=== PATIENT | female | born 1955 | race Caucasian/White ===

== ENCOUNTER → 2022-10-11 | Outpatient (CLI) | payer OTHER ==
[~2022-10-11] MED LIST: ALBU90OI6 INH; OXYC5 PO
[2022-10-12 16:10] LABS: HPV 16 Negative (Negative); HPV 18 Negative (Negative); HPV OTHER HR TYPES Negative (Negative)
== END | disposition home or self-care (01) ==
LOC: LAB SHORT 09:05 → LAB 09:05
PROVIDERS: Internal Medicine
DX: Z01.419 Encounter for gynecological examination (general) (routine) without abnormal findings (principal)
CPT/HCPCS: 87624; G0145

== ENCOUNTER 2024-12-18 22:37 | Inpatient (IN) | payer OTHER ==
[~2024-12-18] VITALS: Ht 165.1 cm; Wt 78.9 kg
[2024-12-18] MEDS ORDERED: LOSARTAN POTASS25 M2 PO (22:56)
[2024-12-18] MEDS ORDERED: ESTRADIOL42.5 GM (22:57)
[2024-12-18] MEDS ORDERED: ATOR40TA PO (22:57)
[2024-12-18] MEDS ORDERED: Ondansetron HCl 2 MG / ML 2ML Vial IV PRN (23:00)
[2024-12-18 23:06] LABS: BASOPHILS ABSOLUTE AUTO 0.04 K/mm3 (0.00-0.23); BASOPHILS PERCENT AUTO 0 % (0-2); EOSINOPHILS ABSOLUTE AUTO 0.00 K/mm3 (0.00-0.68); EOSINOPHILS PERCENT AUTO 0 % (0-6); Hematocrit 41.0 % (33.0-51.0); Hemoglobin 13.8 g/dL (11.5-16.0); IMMATURE GRAN ABSOLUTE AUTO 0.04 K/mm3 (0.00-0.10); IMMATURE GRAN PERCENT AUTO 0 % (0-1); LYMPHOCYTES ABSOLUTE AUTO 0.63 K/mm3 (0.84-5.20); LYMPHOCYTES PERCENT AUTO 4 % (21-46); MONOCYTES ABSOLUTE AUTO 0.49 K/mm3 (0.16-1.47); MONOCYTES PERCENT AUTO 3 % (4-13); Mean Corpuscular HGB Conc 33.7 g/dL (31.5-36.5); Mean Corpuscular Volume 88 fL (80-100); NEUTROPHILS ABSOLUTE AUTO 14.84 K/mm3 (1.96-9.15); NEUTROPHILS PERCENT AUTO 93 % (41-73); NRBC ABSOLUTE 0.00 K/mm3 (0.00-0.02); NRBC Auto 0.0 /100 WBC (0.0-0.2); Platelet Count 291 K/mm3 (150-400); RDW Coefficient Variation 13.4 % (11.7-14.2); RDW Standard Deviation 43.1 fL (35.1-46.3)
[2024-12-18 23:20] LABS: Alanine Aminotransfer (ALT/SGP 31.0 U/L (12-78); Albumin, Blood 3.7 g/dL (3.4-5.0); Albumin/Globulin Ratio 1.0 (0.8-1.8); Anion Gap 6.0 mmol/L (3-11); Aspartate Aminotrans (AST/SGOT 27.0 U/L (12-37); Bilirubin, Total 0.6 mg/dL (0.1-1.0); Blood Urea Nitrogen 17.0 mg/dL (8-24); CO2, Blood 29.0 mmol/L (21-32); Calcium, Blood 8.8 mg/dL (8.5-10.1); Chloride, Blood 106.0 mmol/L (98-108); Creatinine, Blood 0.76 mg/dL (0.40-1.00); Globulin, Blood 3.6 g/dL (2.2-4.0); Glucose, Blood 155.0 mg/dL (70-99); Potassium, Blood 3.7 mmol/L (3.5-5.5); Sodium, Blood 137.0 mmol/L (136-145); Total Protein, Blood 7.3 g/dL (6.4-8.2)
[2024-12-19] MEDS ORDERED: Metoclopramide HCl 5MG / ML 2ML Vial IV ONE (00:55)
[2024-12-19] MEDS ORDERED: NS 1,000 ML IV ONE (02:52)
[2024-12-19] MEDS ORDERED: NS 1,000 ML IV SCH (03:00)
[2024-12-19] MEDS ORDERED: Ondansetron HCl 2 MG / ML 2ML Vial IV PRN (03:10)
[2024-12-19 04:00] VITALS: BP 142/76
[2024-12-19 04:11] LABS: BASOPHILS ABSOLUTE AUTO 0.03 K/mm3 (0.00-0.23); BASOPHILS PERCENT AUTO 0 % (0-2); EOSINOPHILS ABSOLUTE AUTO 0.01 K/mm3 (0.00-0.68); EOSINOPHILS PERCENT AUTO 0 % (0-6); Hematocrit 38.9 % (33.0-51.0); Hemoglobin 13.2 g/dL (11.5-16.0); IMMATURE GRAN ABSOLUTE AUTO 0.04 K/mm3 (0.00-0.10); IMMATURE GRAN PERCENT AUTO 0 % (0-1); LYMPHOCYTES ABSOLUTE AUTO 0.95 K/mm3 (0.84-5.20); LYMPHOCYTES PERCENT AUTO 6 % (21-46); MONOCYTES ABSOLUTE AUTO 0.77 K/mm3 (0.16-1.47); MONOCYTES PERCENT AUTO 5 % (4-13); Mean Corpuscular HGB Conc 33.9 g/dL (31.5-36.5); Mean Corpuscular Volume 88 fL (80-100); NEUTROPHILS ABSOLUTE AUTO 14.16 K/mm3 (1.96-9.15); NEUTROPHILS PERCENT AUTO 89 % (41-73); NRBC ABSOLUTE 0.00 K/mm3 (0.00-0.02); NRBC Auto 0.0 /100 WBC (0.0-0.2); Platelet Count 276 K/mm3 (150-400); RDW Coefficient Variation 13.5 % (11.7-14.2); RDW Standard Deviation 44.1 fL (35.1-46.3)
[2024-12-19 04:26] LABS: Anti-Xa UFH, PHA Monitoring <0.10 IU/mL; Prothrombin Time Results 11.2 Sec (9.7-11.5)
[2024-12-19] MEDS ORDERED: Heparin Sodium,Porcine/0.5 NS 500 ML IV SCH (04:45)
[2024-12-19 04:55] LABS: Magnesium, Blood 1.8 mg/dL (1.6-2.4)
[2024-12-19 04:56] LABS: Alanine Aminotransfer (ALT/SGP 29.0 U/L (12-78); Albumin, Blood 3.5 g/dL (3.4-5.0); Albumin/Globulin Ratio 1.1 (0.8-1.8); Anion Gap 7.0 mmol/L (3-11); Aspartate Aminotrans (AST/SGOT 23.0 U/L (12-37); Bilirubin, Total 0.6 mg/dL (0.1-1.0); Blood Urea Nitrogen 15.0 mg/dL (8-24); CO2, Blood 29.0 mmol/L (21-32); Calcium, Blood 8.5 mg/dL (8.5-10.1); Chloride, Blood 106.0 mmol/L (98-108); Creatinine, Blood 0.76 mg/dL (0.40-1.00); Globulin, Blood 3.3 g/dL (2.2-4.0); Glucose, Blood 130.0 mg/dL (70-99); Potassium, Blood 3.8 mmol/L (3.5-5.5); Sodium, Blood 138.0 mmol/L (136-145); Total Protein, Blood 6.8 g/dL (6.4-8.2)
[2024-12-19 07:13] LABS: CHOL/HDL RATIO 2.2; Cholesterol 158 mg/dL (50-200); HDL Cholesterol 73 mg/dL (>39); LDL/HDL RATIO 1.0; Low Density Lipoprotein Chol 72 mg/dL (0-110); Thyroid Stimulating Hormone 2.450 uIU/mL (0.360-4.800); Triglycerides 67 mg/dL (30-160); Very Low Density Lipoprot Chol 13 mg/dL (6-32)
[2024-12-19 08:07] VITALS: BP 112/77
[2024-12-19] MEDS ORDERED: Enoxaparin 40 MG/0.4 ML SYR SC SCH (09:00)
--- NOTE | 2024-12-19 09:31 | NUR ---
AM NOTE: PATIENT ALERT AND ORIENTED X4. TALKING WITH FAMILY ON PERSONAL PHONE THIS MORNING AND IN GOOD SPIRITS. DENIES PAIN AT THIS TIME. MOVING IND IN BED. UP TO BATHROOM WITH SBA TO HELP MANAGE LINES. PERRLA. DENIES N/T. TELE SHOWING SB/SR WITH HR 40-60'S. DENIES CHEST PAIN AT THIS TIME. STATES SHE DID HAVE A SMALL EPISODE LASTING 15-20MIN OF CHEST 6/10 CHEST PAIN JUST PRIOR TO BEDSIDE SHIFT REPORT. PAIN DID NOT RADIATE. ECHO COMPLETED THIS AM. HEPARIN GTT AND FLUIDS INFUSING PER EMAR. NPO AT THIS TIME. CARDIOLOGY CONSULT PENDING. ON ROOM AIR SATING 95% AND ABOVE. LUNG SOUNDS CLEAR AND DIM IN BASES. EVEN AND UNLABORED RESPIRATIONS. DENIES SOB/COUGH. BOWEL TONES PRESENT. NPO AT THIS TIME. PATIENT DENIES NAUSEA AT THIS TIME. UP TO BATHROOM WITH SBA. ORDERS FOR STOOL SAMPLE. SKIN C/D/I. CALL LIGHT IN REACH. DENIES NEEDS AT THIS TIME.
[2024-12-19 11:10] VITALS: BP 132/73
[2024-12-19] MEDS ORDERED: Dose Adjust by Pharmacy XX STA ×2 (12:12→17:52)
--- NOTE | 2024-12-19 12:19 | NUR ---
DR. RAMIREZ AND DR. MORRIS TO BEDSIDE. THIS RN PRESENT. DR. MORRSI DISCUSSED POSSIBLE ANGIO TOMORROW. NPO AT MIDNIGHT IN CASE PATIENT PROCEEDES WITH PROCEDURE. HEPARIN CONTINUES AT THIS TIME. CLEAR LIQUID DIET IN PLACE, ADVANCE TOLERATED.
[2024-12-19] MEDS ORDERED: CO Q-10100 MG PO (13:56)
[2024-12-19 15:30] VITALS: BP 126/63
--- NOTE | 2024-12-19 18:37 | NUR ---
SHIFT SUMMARY: PATIENT ALERT AND ORIENTED. PLAN FOR POSSIBLE ANGIOGRAM TOMORROW, NPO AT MIDNIGHT. TOLERATING CLEAR LIQUID DIET AT THIS TIME. ADVANCE TOLERATED. STILL NEEDING STOOL SAMPLE. TELE CONTINUES TO SHOW SB/SR WITH HR 40-60'S. ON ROOM AIR. ECHO COMPLETED THIS AM. HEPARIN GTT INFUSING PER EMAR. COMPLAINS OF HEADACHE THIS EVENING. CALL PLACED TO DR. NAZARIO FOR TYLENOL ORDERS. CALL LIGHT IN REACH. DENIES NEEDS AT THIS TIME.
[2024-12-19 19:06] VITALS: BP 156/84
[2024-12-19] MEDS ORDERED: Metoclopramide HCl 5MG / ML 2ML Vial IV PRN (19:15)
[2024-12-20] VITALS (18 sets, daily range): BP systolic 125–176; BP diastolic 69–97
[2024-12-20 05:10] LABS: BASOPHILS ABSOLUTE AUTO 0.05 K/mm3 (0.00-0.23); BASOPHILS PERCENT AUTO 0 % (0-2); EOSINOPHILS ABSOLUTE AUTO 0.00 K/mm3 (0.00-0.68); EOSINOPHILS PERCENT AUTO 0 % (0-6); Hematocrit 38.7 % (33.0-51.0); Hemoglobin 13.1 g/dL (11.5-16.0); IMMATURE GRAN ABSOLUTE AUTO 0.11 K/mm3 (0.00-0.10); IMMATURE GRAN PERCENT AUTO 1 % (0-1); LYMPHOCYTES ABSOLUTE AUTO 0.97 K/mm3 (0.84-5.20); LYMPHOCYTES PERCENT AUTO 7 % (21-46); MONOCYTES ABSOLUTE AUTO 0.72 K/mm3 (0.16-1.47); MONOCYTES PERCENT AUTO 5 % (4-13); Mean Corpuscular HGB Conc 33.9 g/dL (31.5-36.5); Mean Corpuscular Volume 89 fL (80-100); NEUTROPHILS ABSOLUTE AUTO 12.39 K/mm3 (1.96-9.15); NEUTROPHILS PERCENT AUTO 87 % (41-73); NRBC ABSOLUTE 0.00 K/mm3 (0.00-0.02); NRBC Auto 0.0 /100 WBC (0.0-0.2); Platelet Count 230 K/mm3 (150-400); RDW Coefficient Variation 13.5 % (11.7-14.2); RDW Standard Deviation 44.4 fL (35.1-46.3)
[2024-12-20 05:32] LABS: Anion Gap 10.0 mmol/L (3-11); Blood Urea Nitrogen 8.0 mg/dL (8-24); CO2, Blood 25.0 mmol/L (21-32); Calcium, Blood 8.0 mg/dL (8.5-10.1); Chloride, Blood 105.0 mmol/L (98-108); Creatinine, Blood 0.65 mg/dL (0.40-1.00); Glucose, Blood 136.0 mg/dL (70-99); Potassium, Blood 3.4 mmol/L (3.5-5.5); Sodium, Blood 137.0 mmol/L (136-145)
--- NOTE | 2024-12-20 06:09 | NUR ---
SHIFT SUMMARY PT ALERT AND ORIENTED X4, FOLLOWS COMMANDS, ABLE TO MAKE NEEDS KNOWN, AFEBRILE, SB/SR 50-70s, RESP EVEN AND UNLABORED ON RA, SPO2 >90%, PIV TO RIGHT AC AND LEFT HAND PATENT WITH HEPARIN INFUSING PER EMAR, PT RESTLESS AND NAUSEATED/VOMITING MOST OF SHIFT, CP BEGINNING OF SHIFT FOR APROX 2 MINUTES AND RESOLVED WITHOUT INTERVENTION, DR MORRIS CALLED AT 1910 FOR UPDATE ON PT AND NOTIFIED OF PT CP AND N/V, PT MEDICATED WITH REGLAN AND ZOFRAN IVP PER PRN EMAR, PT HAS DENIED CP SINCE BEGINNING OF SHIFT,NPO AT MIDNIGHT FOR ANGIO SCHEDULED THIS AM, SIDE RAILS UP X2 CALL LIGHT IN REACH
--- NOTE | 2024-12-20 06:33 | NUR ---
UPDATE PT HAD A NOTED 10 BEAT RUN OF VTACH, RESOLVED WITHOUT INTERVENTION, PT RESTING WITH EYES CLOSED IN BED, NO DISTRESS NOTED, DR SAMANIEGO AT BEDSIDE AT THIS TIME AND MADE AWARE OF VTACH AND UPDATED ON PT HS SHIFT WITH N/V ALL SHIFT
[2024-12-20] MEDS ORDERED: Prochlorperazine Edisylate 10 mg Vial IV PRN (06:40)
[2024-12-20] MEDS ORDERED: FentaNYL Citrate 50 MCG/ML 2 ML Injection IV ONE (08:10)
[2024-12-20] MEDS ORDERED: LORazepam 2 MG/ML 1ML Injection IV ONE (08:10)
[2024-12-20] MEDS ORDERED: Heparin Sodium 1000 Units/ML 10ML MDV ONE (08:36)
[2024-12-20] MEDS ORDERED: Verapamil HCL 2.5 MG/ML 2ML Injection ONE (08:36)
[2024-12-20] MEDS ORDERED: Nitroglycerin 2 MG/20 ML BTL ONE (08:36)
[2024-12-20] MEDS ORDERED: NS 250 ML IV ONE (08:36)
[2024-12-20] MEDS ORDERED: NS 1,000 ML IV ONE ×2 (08:36→08:54)
[2024-12-20] MEDS ORDERED: Midazolam HCl 1MG / ML 2ML Vial ONE (08:53)
[2024-12-20] MEDS ORDERED: FentaNYL Citrate 50 MCG/ML 2 ML Injection ONE (08:53)
--- NOTE | 2024-12-20 09:10 | NUR ---
AM NOTE: PATIENT ALERT AND ORIENTED. FEELING ILL THIS MORNING. COMPLAINS OF 8/10 ABDOMINAL PAIN THAT IS SHARP AND CONSTANT. NAUSEATED THROUGHOUT THE NIGHT WITH NO SLEEP. TELE SHOWING SR WITH HR 40-60'S. SBP 150'S. ON ROOM AIR SATING ABOVE 90%. LUNG SOUNDS CLEAR AND DIM IN BASES. EVEN AND UNLABORED RESPIRATIONS. DENIES SOB/COUGH. NPO PENDING ANGIOGRAM. BOWEL TONES PRESENT. MEDICATED THIS AM FOR NAUSEA. DR. MORRIS TO BEDSIDE. ORDER FOR FENTANYL 25MCG IV X1 NOW. WELL 1MG PO ATIVAN ADMINISTERED. PATIENT SYMPTOMS IMPROVED FOR MEDICATION AND WAS ABLE TO REST THIS AM PRIOR TO ANGIOGRAM. PATIENT LEFT FOR ANGIOGRAM AT 0908. HEPARIN ON STANDBY AND PHARMACY UPDATED. POTASSIUM REPLACED THIS AM.
--- NOTE | 2024-12-20 10:40 | NUR ---
PATIENT RETURNS FROM NURSE HEAD AT 1016. VITAL SIGNS STABLE AND POST PROCEDURE VITAL SIGNS IN PROGRESS. RIGHT RADIAL SITE SOFT, NONTENDER AND NO HEMATOMA. TR BAND AND ARM BOARD IN PLACE. PATIENT VERY SLEEPY, BUT WAKES TO NAME AND TOUCH. ABLE TO ANSWER QUESTIONS CLEARLY. RIGHT RADIAL PRECAUTIONS REVIEWED WITH PATIENT. WEARING 1L NASAL CANNULA AT THIS TIME SATING ABOVE 95%. LUNG SOUNDS CLEAR. OCCASIONAL SNORE WHEN SLEEPING. TELE SHOWING SINUS ERROL WITH HR 50'S. SBP 150-160'S. BED ALARM IN PLACE DUE TO SAFETY AT THIS TIME WITH PATIENT BEING SO SLEEPY. CALL LIGHT IN REACH.
--- NOTE | 2024-12-20 11:20 | NUR ---
DR. MORRIS TO BEDSIDE POST ANGIO. PATIENT WAKES TO DISCUSS RESULTS WITH DR. MORRIS BUT FALLS BACK ASLEEP QUICKLY. ORDERS TO START LOSARTAN AT THIS TIME.
[2024-12-20] MEDS ORDERED: HydrALAZINE HCl 20 MG / ML 1ML Vial IV PRN (13:55)
--- NOTE | 2024-12-20 14:10 | NUR ---
PATIENT BLOOD PRESSURE REMAINS ELEVATED. DR. RAMIREZ UPDATED BY THIS RN. SEE NEW ORDER FOR IV HYDRALAZINE.
--- NOTE | 2024-12-20 16:15 | NUR ---
PATIENT HAVING MORE FREQUENT PVC'S AND A FEW RUNS OF VENT BIGEMCALEBY DR. RAMIREZ UPDATED. VITAL SIGNS STABLE. BLOOD PRESSURE IMPROVED. CURRENTLY 143/87. HR MORE CONSISTENTLY IN THE 70-80'S. TEMPORAL TEMP 98.7. UP TO BATHROOM TO VOID X2 SINCE ANGIOGRAM WITH SBA. FEW SIPS OF WATER SINCE ANGIOGRAM BUT DUE TO NAUSEA PATIENT DENIES OTHER CLEAR LIQUIDS AT THIS TIME. PRN COMPAZINE GIVEN WITH SOME RELIEF. PATIENT RESTING IN BED WITH EYES CLOSED. WAKES TO CARES AND VOICE. RIGHT RADIAL SITE SOFT AND NONTENDER. TR BAND REMOVED AROUND 1445. TEGADERM AND ARM BOARD IN PLACE. CALL LIGHT IN REACH. DENIES NEEDS AT THIS TIME.
[2024-12-21] VITALS (25 sets, daily range): BP systolic 75–134; BP diastolic 55–90
[2024-12-21 04:48] LABS: BASOPHILS ABSOLUTE AUTO 0.09 K/mm3 (0.00-0.23); BASOPHILS PERCENT AUTO 1 % (0-2); EOSINOPHILS ABSOLUTE AUTO 0.02 K/mm3 (0.00-0.68); EOSINOPHILS PERCENT AUTO 0 % (0-6); Hematocrit 44.8 % (33.0-51.0); Hemoglobin 15.5 g/dL (11.5-16.0); IMMATURE GRAN ABSOLUTE AUTO 0.09 K/mm3 (0.00-0.10); IMMATURE GRAN PERCENT AUTO 1 % (0-1); LYMPHOCYTES ABSOLUTE AUTO 1.74 K/mm3 (0.84-5.20); LYMPHOCYTES PERCENT AUTO 9 % (21-46); MONOCYTES ABSOLUTE AUTO 1.97 K/mm3 (0.16-1.47); MONOCYTES PERCENT AUTO 11 % (4-13); Mean Corpuscular HGB Conc 34.6 g/dL (31.5-36.5); Mean Corpuscular Volume 87 fL (80-100); NEUTROPHILS ABSOLUTE AUTO 14.70 K/mm3 (1.96-9.15); NEUTROPHILS PERCENT AUTO 79 % (41-73); NRBC ABSOLUTE 0.00 K/mm3 (0.00-0.02); NRBC Auto 0.0 /100 WBC (0.0-0.2); Platelet Count 311 K/mm3 (150-400); RDW Coefficient Variation 13.6 % (11.7-14.2); RDW Standard Deviation 43.6 fL (35.1-46.3)
[2024-12-21 05:14] LABS: Alanine Aminotransfer (ALT/SGP 38.0 U/L (12-78); Albumin, Blood 3.6 g/dL (3.4-5.0); Albumin/Globulin Ratio 1.0 (0.8-1.8); Anion Gap 11.0 mmol/L (3-11); Aspartate Aminotrans (AST/SGOT 44.0 U/L (12-37); Bilirubin, Total 1.1 mg/dL (0.1-1.0); Blood Urea Nitrogen 8.0 mg/dL (8-24); CO2, Blood 25.0 mmol/L (21-32); Calcium, Blood 8.8 mg/dL (8.5-10.1); Chloride, Blood 102.0 mmol/L (98-108); Creatinine, Blood 0.76 mg/dL (0.40-1.00); Globulin, Blood 3.6 g/dL (2.2-4.0); Glucose, Blood 129.0 mg/dL (70-99); Potassium, Blood 3.6 mmol/L (3.5-5.5); Sodium, Blood 134.0 mmol/L (136-145); Total Protein, Blood 7.2 g/dL (6.4-8.2)
--- NOTE | 2024-12-21 05:45 | NUR ---
SHIFT SUMMARY PT IS A&O X4, TO ABLE TO MAKE NEEDS KNOWN, MOVING ALL EXTREMITIES WITH PURPOSE, REPOSITIONING SELF IN BED, EDUCATED PT TO CALL BEFORE GETTING OUT OF BED. CONTINUOUS SPO2, SPO2 GREATER THAN 90% ON RA/ TITRATED OFF 2L 02 VIA NC AT THE START OF THIS SHIFT, LUNGS SOUND CLEAR WITH DIMINISHED BASES, NO SIGNS OF RESPIRATORY DISTRESS NOTED. CONTINUOUS TELE MONITORING, SINUS 60-80 S, BP STABLE WITH MAP GREATER THAN65, CAP WNL, PULSES PRESENT T/O, PT DENIES CHEST P/P T/O THIS SHIFT. BOWEL TONES PRESENT IN ALL 4Q, PT REPORTING NAUSEA/ MEDICATED PER ORDERS, OR CONSTIPATION, PT REPORTING CENTRAL ABD PAIN STATING HER STOMACH HURTS , PT ALSO REPORTS THAT SHE IS SCARED TO EAT BECAUSE OF THE PAIN AND NAUSA SHE HAD THE PREVIOUS NIGHT. BED LOWEST POSITION, CALL LIGHT IN REACH, AWAITING TO GIVE REPORT TO ONCOMING RN.
--- NOTE | 2024-12-21 09:34 | NUR ---
AM NOTE: PATIENT ALERT AND ORIENTED. CONTINUES TO NOT GET GOOD REST AT NIGHT AND STILL HAVING INTERMIT ABDOMINAL PAIN AND NAUSEA. PATIENT STATES SHE TRIED A COUPLE BITES OF APPLESAUCE LAST NIGHT AND WAS UNABLE TO KEEP IT DOWN. DENIES NEED FOR NAUSEA MEDICATION THIS AM. STILL NO BOWEL MOVEMENT FOR COLLECTION. BOWEL TONES PRESENT AND PATIENT PASSING GAS. ABLE TO KEEP MORNING PILLS DOWN WITH SIPS OF WATER. UP WITH SBA TO BATHROOM. TELE SHOWING SR/ST WITH PVC'S AND PAC'S. HR 70-80'S AT REST AND UP TO 130'S THIS MORNING WALKING TO BATHROOM. PATIENT STATES SHE CURRENTLY DOES NOT HAVE ANY CHEST PAIN BUT CONTINUES TO INTERMIT HAVE BRIEF EPISODES OF CHEST PAIN, SAME WHEN SHE CAME INTO HOSPITAL. PPP. NO EDEMA NOTED. IV'S SALINE LOCKED. RIGHT RADIAL SITE WITH SMALL AMOUNT OF BRUISING BUT REMAINS SOFT AND NONTENDER. TEGADERM TO SITE AND ARM BOARD IN PLACE. RADIAL PRECAUTIONS REVIEWED WITH PATIENT. ON ROOM AIR SATING ABOVE 92%. LUNG SOUNDS CLEAR AND DIM IN BASES. DENIES SOB/COUGH. EVEN AND UNLABORED RESPIRATIONS. PATIENT DENIES NEED FOR THIS RN TO UPDATE ANY FAMILY OR FRIENDS. CALL LIGHT IN REACH. RESTING IN BED AT THIS TIME WITH EYES CLOSED.
[2024-12-21] MEDS ORDERED: Magnesium Sulf 2 GM/Water 50ML 50 ML IV ONE (12:20)
[2024-12-21] MEDS ORDERED: Metoprolol Tartrate 5 ML IV ONE (12:37)
[2024-12-21] MEDS ORDERED: Metoprolol Tartrate 1 MG/ML 5 ML VIAL IV ONE (12:40)
[2024-12-21] MEDS ORDERED: NS 500 ML IV ONE ×2 (13:05→14:40)
--- NOTE | 2024-12-21 14:22 | NUR ---
PATIENT UP TO BATHROOM AND CONVERSION TO AFIB WITH HR UP TO 160-170'S. DR. MORRIS TO BEDSIDE. EKG COMPLETED AND IN CHART. PATIENT FEELS HEART RACING BUT ASYMPTOMATIC OTHERWISE. IV DIG, IV METOPROLOL, IV MAG, PO KCL AND PO METOPROLOL TARTRATE GIVEN PER DR. MORRIS ORDERS. SEE EMAR FOR DOSING AND ADMINISTRATION TIMES. PATIENT CONVERSION BACK TO SR WITH PVC'S WITH HR 50-70'S. POST SR CONVERSION ORDERS FOR 500ML BOLUS. BOLUS INFUSED. SEE CHARTED VITALS FOR BLOOD PRESSURE TREND. CURRENT BLOOD PRESSURE 73/54(62). DR. MORRIS UPDATED ON BLOOD PRESSURE. CASE MANAGEMENT IN ROOM AT THIS TIME. CALL LIGHT IN REACH.
--- NOTE | 2024-12-21 15:48 | NUR ---
ADDITIONAL 500ML NORMAL SALINE BOLUS GIVEN. SEE CHARTED VITALS. DR. MORRIS UPDATED ON VITALS POST BOLUS / (72). DR. NELSON ON UNIT AND THIS RN DISCUSSED VITALS, BOLUSED NORMAL SALINE, ELEVATED AST AND BILI. NO NEW ORDERS FOR THIS RN TO PLACE.
--- NOTE | 2024-12-21 17:49 | NUR ---
SHIFT SUMMARY: SEE PREVIOUS NOTES FOR UPDATES. PATIENT REMAINS SR WITH HR 60'S AT THIS TIME. BLOOD PRESSURE 97/61(72). DENIES ANY CARDIAC CHEST PAIN/PRESSURE/PALPIATIONS. ON ROOM AIR SATING ABOVE 94%. CLEAR LIQUID DIET AT THIS TIME. PATIENT STATES SHE IS STARTING TO FEEL BETTER THIS EVENING AND REQUESTED GINGERALE. ABDOMINAL ULTRASOUND COMPLETED. GI CONSULT CALLED INTO ANSWERING SERVICE. PATIENT DENIES NAUSEA AT THIS TIME. CONTINUES TO HAVE ABDOMINAL SORENESS/PAIN. CALL LIGHT IN REACH. DENIES NEEDS.
--- NOTE | 2024-12-21 23:54 | NUR ---
RESIDENT NO CALL NOTIFIED REGARDING PATIENT'S SYSTOLIC BLOOD PRESSURE TRENDING IN THE 90S. REPRTED TO RESIDENT THAT PATIENT RECEIVED IV DILT AND METOPROLOL ON DAYSHIFT FOR HER HR IN THE 170S, WITH THEN PERSISTENT SBP IN THE 90S DESPITE 1L FLUID BOLUS ADMINISTERED ON DAYSHIFT. PATIENT REMAINS ASYMPTOMATIC AND VERBALIZED THAT HER SBP "SOMETIMES" RANGES IN THE 80S-90S AT HOME. MAP HAS REMAINED >65. PATIENT HAS BEEN TOLERATING SMALL AMOUNTS OF PO INTAKE OF FLUIDS SINCE START OF SHIFT. RESIDENT STATED THEY MAY CONSIDER PLACING AN ORDER FOR A SMALL FLUID BBOLUS BUT FELT REASSURED DUE TO PATIENT BEING ASYMPTOMATIC. WILL CONTINUE TO MONITOR BP TRENDS, MAP, FLUID TOLERANCE, AND FOR ANY SIGNS OR SYMPTOMS OF HYPOTENSION (E.G., DIZZINESS, ALTERED MENTAL STATUS, DECREASED URINE OUTPUT).
[2024-12-22 03:43] LABS: Stool Occult Blood Guaiac 1 Neg (Neg)
[2024-12-22 03:52] VITALS: BP 100/58
[2024-12-22 03:55] LABS: BASOPHILS ABSOLUTE AUTO 0.07 K/mm3 (0.00-0.23); BASOPHILS PERCENT AUTO 1 % (0-2); EOSINOPHILS ABSOLUTE AUTO 0.20 K/mm3 (0.00-0.68); EOSINOPHILS PERCENT AUTO 2 % (0-6); Hematocrit 43.8 % (33.0-51.0); Hemoglobin 14.7 g/dL (11.5-16.0); IMMATURE GRAN ABSOLUTE AUTO 0.05 K/mm3 (0.00-0.10); IMMATURE GRAN PERCENT AUTO 1 % (0-1); LYMPHOCYTES ABSOLUTE AUTO 1.74 K/mm3 (0.84-5.20); LYMPHOCYTES PERCENT AUTO 16 % (21-46); MONOCYTES ABSOLUTE AUTO 1.29 K/mm3 (0.16-1.47); MONOCYTES PERCENT AUTO 12 % (4-13); Mean Corpuscular HGB Conc 33.6 g/dL (31.5-36.5); Mean Corpuscular Volume 89 fL (80-100); NEUTROPHILS ABSOLUTE AUTO 7.39 K/mm3 (1.96-9.15); NEUTROPHILS PERCENT AUTO 69 % (41-73); NRBC ABSOLUTE 0.00 K/mm3 (0.00-0.02); NRBC Auto 0.0 /100 WBC (0.0-0.2); Platelet Count 245 K/mm3 (150-400); RDW Coefficient Variation 13.9 % (11.7-14.2); RDW Standard Deviation 45.0 fL (35.1-46.3)
[2024-12-22 04:27] LABS: Alanine Aminotransfer (ALT/SGP 46.0 U/L (12-78); Albumin, Blood 2.9 g/dL (3.4-5.0); Albumin/Globulin Ratio 0.9 (0.8-1.8); Anion Gap 7.0 mmol/L (3-11); Aspartate Aminotrans (AST/SGOT 39.0 U/L (12-37); Bilirubin, Total 0.9 mg/dL (0.1-1.0); Blood Urea Nitrogen 14.0 mg/dL (8-24); CO2, Blood 29.0 mmol/L (21-32); Calcium, Blood 8.1 mg/dL (8.5-10.1); Chloride, Blood 104.0 mmol/L (98-108); Creatinine, Blood 1.0 mg/dL (0.40-1.00); Globulin, Blood 3.2 g/dL (2.2-4.0); Glucose, Blood 84.0 mg/dL (70-99); Potassium, Blood 3.9 mmol/L (3.5-5.5); Sodium, Blood 136.0 mmol/L (136-145); Total Protein, Blood 6.1 g/dL (6.4-8.2)
[2024-12-22 05:11] LABS: Campylobacter Sp Not Detected (NOT DETECT); E. Coli O157 Not Detected (NOT DETECT); Enteroaggregative E. coli-EAEC Not Detected (NOT DETECT); Enteropathogenic E. coli-EPEC Not Detected (NOT DETECT); Enterotoxigenic E. coli-ETEC Not Detected (NOT DETECT); Salmonella Sp Not Detected (NOT DETECT); Shiga Toxin-prod E. coli-STEC Not Detected (NOT DETECT); Shigella/Enteroin E. coli-EIEC Not Detected (NOT DETECT); Vibrio Sp Not Detected (NOT DETECT)
--- NOTE | 2024-12-22 05:20 | NUR ---
SHIFT SUMMARY: PATIENT IS A&OX4. TELE SHOWED SINUS RHYTHM WITH HEART RATE IN THE 70'S-80'S BPM. PATIENTS SBP HAS BEEN BETWEEN 80'S-90'S WITH THE HIGHEST BEING 100 WITH MAPS >65. PATIENT DENIED HAVING ANY SIGNS OR SYMPTOMS OF HYPOTENSION (E.G., DIZZINESS, CHEST PAIN/PALPITIONS, ALTERED MENTAL STATUS, DECREASED URINE OUTPUT) THROUGHOUT SHIFT. OTHER VITALS REMAINED STABLE. MD WAS NOTIFIED DURING THE NIGHT AROUND 0000 (SEE NURSES NOTES) WITH NO NEW ORDERS AT THIS TIME. PATIENT HAS BEEN TOLERATING CLEAR LIQUIDS DIET WITH A FEW SALTINE CRACKERS WELL. ABDOMINAL ULTRASOUND RESULTS ARE COMPLETED. STOOL SAMPLE RESULTS ARE COMPLETED. EKG WAS ALSO COMPLETED THIS MORNING PER LEAD SOFTWARE TESTER ORDERS AND IS IN HER PHYSICAL CHART. PATIENT REPORTS TO HAVE A SORENESS/DISCOMFORT IN HER ABDOMEN, BUT REFUSED PAIN MEDICATIONS DUE TO "FEELING MORE AND MORE BETTER". PATIENT CALLS APPROPRIATELY WITH CALL LIGHT IN REACH WHILE LAYING IN BED AT THIS TIME.
[2024-12-22 08:01] VITALS: BP 103/63
[2024-12-22] MEDS ORDERED: OMEP20ER PO (13:06)
[2024-12-22] MEDS ORDERED: ASPI81CH PO (13:07)
[2024-12-22] MEDS ORDERED: ALBU90OI INH (13:12)
[2024-12-22 13:22] VITALS: BP 99/66
--- NOTE | 2024-12-22 15:45 | NUR ---
SHIFT SUMMARY/DISHARGE PATIENT AOX4 ABLE TO MAKE NEEDS KNOWN. SHE DENIES CP OR SOB. VITALS STABLE. INDEPENDENT WITH MEALS AND TO THE RESTROOM. TOLERATING MEALS. LBM WAS TODAY. PATIENT STATES NO MORE NAUSEA OR ABD PAIN. HOSP, CARDIO AND GEN SURG SPOKE WIT PATIENT AT BEDSIDE. DISCHARGE INSTRUCTIONS EXPLAINED ALL QUESTIONS ANSWERED ZIO PATCH WAS PLACED PRIOR TO DC.
== END 2024-12-22 16:10 | disposition home or self-care (01) | DRG 281 ==
LOC: ER 22:37 → PCU 22:38 → ER 22:38 → PCU 12-19 03:48
PROVIDERS: Family Medicine; Internal Medicine; Student in an Organized Health Care Education/Training Program; ADMIT Student in an Organized Health Care Education/Training Program
DX: I21.4 Non-ST elevation (NSTEMI) myocardial infarction (principal); E87.1 Hypo-osmolality and hyponatremia; I48.92 Unspecified atrial flutter; Z79.899 Other long term (current) drug therapy; J43.9 Emphysema, unspecified; Z87.891 Personal history of nicotine dependence; E78.5 Hyperlipidemia, unspecified; Z98.51 Tubal ligation status; Z98.890 Other specified postprocedural states; K21.9 Gastro-esophageal reflux disease without esophagitis; E80.6 Other disorders of bilirubin metabolism; N18.2 Chronic kidney disease, stage 2 (mild); F41.8 Other specified anxiety disorders; R73.03 Prediabetes; K52.9 Noninfective gastroenteritis and colitis, unspecified; I12.9 Hypertensive chronic kidney disease with stage 1 through stage 4 chronic kidney disease, or unspecified chronic kidney disease; I95.9 Hypotension, unspecified
CPT/HCPCS: 36415; 74177; 76705; 76937; 80048; 80053; 80061; 82272; 83036; 83690; 83735; 84145; 84443; 84484; 85025; 85520; 85610; 87507; 93005; 93010; 93246; 93306; 93458; 94762; 96361; 96374-59; 96375; 99152; 99285-25; A9270; C1769; C1887; C1894; G0378; J0360; J0780; J1160; J1644; J2250; J2405; J2765; J3010; J3475; J7030; J7040; J7050; Q9967